=== PATIENT | female | born 1950 | race Caucasian/White ===

== ENCOUNTER 2022-08-25 18:31 | Emergency (ER) | payer MEDICARE, BC, SELFPAY ==
[2022-08-25] VITALS (21 sets, daily range): BP systolic 110–150; BP diastolic 69–101; PULSE 92–127; RESP 18; TEMP 36.4; O2SAT 94–98; BMI 21.6
--- NOTE | 2022-08-25 18:51 | ED.GENADULT ---
HPI - General Adult General Time Seen by Provider: 18:51 Date Seen: 08/25/22 Chief complaint: Arrhythmia/Palpitations Stated complaint: Afib Time Seen by Provider: 08/25/22 18:50 Source: patient and RN notes reviewed Mode of arrival: ambulatory Limitations: no limitations History of Present Illness HPI narrative: Patient is a 71-year-old female ambulatory in the ED of her own accord with concern of recurrent atrial fibrillation. She states for the past year she has been having intermittent symptoms of atrial fibrillation. She is scheduled to do a phone consultation with Cardiology tomorrow to discuss further steps. She is not on any rate control medicines, not on any blood thinners. She notes that her episodes are becoming more problematic. She is having more difficulty in feeling winded, decreased tolerance for activities. She has never been diagnosed with congestive heart failure. She does note her dad of congestive heart failure and she has 2 brothers with pacemakers. She does not have diabetes, states she has never been diagnosed with hypertension. She is not having any chest pain right now. She states the last 2 weeks she has maybe felt a little tickle in her chest. About 30 minutes prior to presentation to the ER she felt her heart rate going fast again, took her pulse and was elevated. She states that she had an echo just recently that showed her heart function was reportedly normal. She states that in part of this workup there was a point where she had a 6 second pause after 1 of her beats. Note later patient told nursing staff that a monitor or something that she had done showed that she had only been out of atrial fibrillation 2 days since June. We are going to try to review her records. If she indeed is in chronic atrial fibrillation, do think she should probably be on anticoagulation possibly pending a cardioversion down the road and certainly be on rate control from what I am seeing. Related Data Home Medications Medication Instructions Recorded Confirmed No Known Home Medications 08/25/22 08/25/22 Allergies Allergy/AdvReac Type Severity Reaction Status Date / Time amoxicillin Allergy Verified 08/25/22 18:40 ciprofloxacin [From Cipro] Allergy Verified 08/25/22 18:40 Review of Systems Status of ROS: Reports: 10 or more systems reviewed and unremarkable except as noted in History and below [facility] PFS Social History Smoking Status: Unknown if ever smoked Do you use any of these nicotine containing products: None How often do you have a drink containing alcohol: never AUDIT-C Alcohol total score: 0 Non-prescribed substance use: denies use Exam Const: Vital Signs, click to edit/add: Vital Signs - 24 hr 08/25/22 18:37 08/25/22 19:00 08/25/22 20:07 Temperature 97.5 F L Pulse Rate 104 H Pulse Rate [Right Pulse Oximeter] 117 H Respiratory Rate 18 Blood Pressure Blood Pressure [Ri ght Upper Arm] 150/98 H Pulse Oximetry 98 98 94 Oxygen Delivery Me thod Room Air 08/25/22 20:15 08/25/22 20:17 08/25/22 19:15 Temperature Pulse Rate 105 H 122 H Pulse Rate [Right Pulse Oximeter] 120 H Respiratory Rate 18 Blood Pressure 124/94 H Blood Pressure [Ri ght Upper Arm] 110/83 Pulse Oximetry 96 95 97 Oxygen Delivery Me thod Room Air 08/25/22 19:30 08/25/22 19:45 Temperature 97.5 F L Pulse Rate Pulse Rate [Right Pulse Oximeter] 110 H 115 H Respiratory Rate 18 18 Blood Pressure Blood Pressure [Ri ght Upper Arm] 117/99 H 125/69 Pulse Oximetry 98 95 Oxygen Delivery Me thod Room Air Room Air Documenting provider has reviewed patient's vital signs: yes Common normals: no apparent distress, average body habitus, oriented x3, no limitations, healthy appearing, alert and well nourished General appearance: cooperative, comfortable, well kempt and well developed HENMT: Common normals: normocephalic, head/scalp atraumatic and hearing grossly normal bilaterally Head and scalp: normocephalic and atraumatic Eye: Common normals: PERRL, EOMs intact bilaterally, conjunctivae normal and no scleral icterus Conjunctiva: conjunctiva(e) normal Pupil: PERRL Neck & C-Spine: Common normals: full ROM, no lymphadenopathy, supple, no meningeal signs, no JVD and thyroid normal Thyroid: thyroid normal Chest: Common normals: inspection of chest normal and palpation of chest normal Resp: Common normals: normal respiratory effort, no retractions, no use of accessory muscles and clear to auscultation bilaterally Effort & inspection: able to speak in complete sentences Auscultation: clear to auscultation bilaterally Cardio: Common normals: no JVD, no clicks and no murmurs Rhythm: abnormal rhythm irregularly irregular GI: Common normals: Normal to inspection, nondistended, normoactive bowel sounds present, soft to palpation, non-tender, no hepatosplenomegaly and no masses Palpation: soft and no hepatosplenomegaly Extremity: Common normals: no pedal edema Neuro: Common normals: oriented x3 Sensorium/orientation: alert Meningeal signs: no meningeal signs Psych: Appearance: well kempt Course Course Hospital Course: Patient has recurrent arrhythmia, probable atrial fibrillation based on her history. Will obtain EKG, have her on cardiac monitoring and pulse oximetry. Clinically, she does not seem to have any congestive heart failure but will obtain portable chest x-ray. We will get appropriate labs. I will not do a screening thyroid as she has had symptoms for a year and would presume that this is been done. Will calculate her chads Vasc score. Have reviewed with her the 2 fold complications with atrial fibrillation, rate control and anticoagulation for stroke risk. Will initiate 2.5 mg IV metoprolol and see how she tolerates this. Attempt to review records, possibly talk to Cardiology if need be. Reevaluation(s) Reevaluation #1: Was in with nursing staff while patient was receiving her IV metoprolol. It did slow her rate down, I was observing the monitor. There certainly aspirate X that show atrial fibrillation but at times there were definite P-waves in a saw tooth pattern with variable block. Thus, I can see on the monitor that she does have some arrhythmia burden with atrial flutter. I am going to talk to Cardiology on-call through [facility]. Did question the patient about her arrhythmia burden. She states since July 05 that she has been keeping a log. She has been in and out of atrial fibrillation. She did have a ZIO patch monitor for 2 weeks in that time frame as well. Time: 19:28 Reevaluation #2: Spoke with embedded software programmer Dr. Ma from [facility]. Reviewed the concern for the pauses seen on the ZIO patch, her tachycardia with probable atrial fibrillation and flutter. She recommended no further rate suppression at this time for concern of ensuing bradycardic rhythms. They do have the capacity for transfer for cardiac monitored bed at [facility] currently. She recommends that patient be evaluated by electrophysiology for pacemaker placement. I will subsequently talk to their hospitalist to give report. I a have reviewed with the patient recommendation for transfer tonight. The embedded software programmer did not recommend using any blood thinners at this time. Time: 20:11 Reevaluation #3: Gave report to Dr. Anguiano the hospitalist. He will accept patient. 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 Time: 20:31 Vital Signs Vital signs: Initial Vital Signs Temperature 97.5 F L 08/25/22 18:37 Temperature Source Temporal Artery Scan 08/25/22 18:37 Pulse Rate 117 H 08/25/22 18:37 Respiratory Rate 18 08/25/22 18:37 Blood Pressure 150/98 H 08/25/22 18:37 Blood Pressure Mean 115 08/25/22 18:37 Blood Pressure Position Sitting 08/25/22 18:37 Pulse Oximetry 98 08/25/22 18:37 Oxygen Delivery Method 08/25/22 18:37 Vital Signs Temperature 97.5 F L 08/25/22 18:37 Pulse Rate 117 H 08/25/22 18:37 Respiratory Rate 18 08/25/22 18:37 Blood Pressure 150/98 H 08/25/22 18:37 Pulse Oximetry 98 08/25/22 18:37 Oxygen Delivery Method 08/25/22 18:37 Temperature 97.5 F L 08/25/22 19:45 Pulse Rate 122 H 08/25/22 20:17 Respiratory Rate 18 08/25/22 19:45 Blood Pressure 124/94 H 08/25/22 20:17 Pulse Oximetry 95 08/25/22 20:17 Oxygen Delivery Method 08/25/22 19:45 Medical Decision Making Medical Records Medical records reviewed: Yes I reviewed the patient's medical records Medical records narrative: ZIO patch preliminary findings show pauses, 4 episodes longus being 6.5 seconds. Atrial fibrillation occurred 24% of the time. The ZIO patch initial recording and said that there was no ventricular tachycardia found but in an episode of the atrial fibrillation that is listed on the sheet it does look to me that there is a wide complex tachycardia 7 be run followed by another 3 beat run. Echo from 08/21/2022 showed normal left ventricular size, borderline wall thickness, normal global systolic function, calculated EF of 66%. Normal estimated pulmonary pressures by tricuspid regurgitation velocity and right atrial pressure. Lab Data Lab results reviewed: Yes I reviewed the patient's lab results Labs: Lab Results 08/25/22 08/25/22 08/25/22 Range/Units 19:03 19:15 19:15 WBC 5.65 (4.50-11.00) K/uL RBC 4.85 (4.00-5.20) m/uL Hgb 14.9 (12.0-16.0) gm/dL Hct 43.1 (33.0-51.0) % MCV 89 (80-100) fL MCH 31 (26-34) pg MCHC 35 (32-36) gm/dL RDW Coeff of Deion 12.4 (11.5-15.5) % Plt Count 265 (140-440) K/uL Neut % (Auto) 56.9 (42.0-72.0) % Lymph % (Auto) 32.6 (20-44) % Mora % (Auto) 8.1 (0.0-11.0) % Eos % (Auto) 1.9 (0.0-7.0) % Baso % (Auto) 0.5 (0.0-3.0) % Neut # (Auto) 3.21 (1.7-7.0) K/uL Lymph # (Auto) 1.84 (0.90-2.90) K/uL Mora # (Auto) 0.50 (0.00-0.90) K/UL Eos # (Auto) 0.11 (0.00-0.50) K/uL Baso # (Auto) 0.03 (0.00-0.30) K/uL Sodium 139 (135-149) mmol/L Potassium 3.8 (3.6-5.1) mmol/L Chloride 105 (96-114) mmol/L Carbon Dioxide 27 (20-32) mmol/L BUN 16 (7-30) mg/dL Creatinine 0.7 (0.5-1.5) mg/dL Estimated Creat Clear 46.43 Estimated GFR 92 ml/min Glucose 116 H (60-115) mg/dL Calcium 9.5 (8.4-10.6) mg/dL Magnesium 2.2 (1.5-2.6) mg/dL Total Bilirubin 0.9 (0.1-1.5) mg/dL AST 25 (12-35) U/L ALT 15 (4-35) U/L Alkaline Phosphatase 68 (40-150) U/L C-Reactive Protein < 0.5 L (0.5-1.0) mg/dL NT-Pro-B Natriuret Pep 122 pg/mL Total Protein 7.4 (6.0-8.3) g/dL Albumin 4.5 (3.3-5.0) g/dL POC Troponin I 0.00 L (0.01-0.04) ng/ml Imaging Data Chest x-ray: Attestation: I have reviewed the pertinent imaging results. My impression: I see cardiomegaly without any overt CHF, no consolidation. Await Radiology over-read. Radiologist's impression: Patient: TROY PHELAN Facility:?[facility] Patient ID:?[id number] Site Patient ID:?[id number]. Site :?[id number] Study:?XRay Chest ap portable-08/25/2022 7:30:26 PM Ordering Physician:?Shannon Tai Final Report: INDICATION: Atrial fibrillation with RVR. COMPARISON: None. TECHNIQUE: Chest one-view. FINDINGS: Cardiac silhouette is enlarged. No focal lung consolidation, pleural effusion or pneumothorax. Bones are unremarkable for age. IMPRESSION: Cardiomegaly. Otherwise no acute cardiopulmonary abnormality. Dictated by Tobias Carvalho MD @ 08/25/2022 7:56:03 PM (Electronic Signature) ECG Data Attestation: I personally reviewed and interpreted this ECG as follows: (Atrial flutter versus atrial fibrillation with variable block, 115 beats per minute. Nonspecific ST segment changes.) Prior ECG tracings: not available for review Critical Care Time Critical Care Time Critical Care Time: Yes Attestation: The patient required my highest level preparedness to intervene emergently and I personally spent this critical care time directly and personally managing the patient. This critical care time included: Obtaining a history; Examining the patient; Pulse oximetry; Ordering and reviewing of studies; Arranging urgent treatment with development of a management plan; Evaluation of patients response to treatment; Frequent reassessment discussions with other providers. This critical care time was performed to assess and manage the high probability of imminent life-threatening deterioration that could result in multiorgan failure. It was exclusive of separate billable procedures and treating other patients and teaching time. Total Critical Care Time in Minutes: 60 (Initial 60 minutes in evaluation, review of records and subsequent initial management.) Discharge Plan Discharge Clinical Impression: Sinus pause, Atrial flutter, Atrial fibrillation with rapid ventricular response Patient Disposition: Xfer [facility] Discharge Location: [facility] Prescriptions: No Action No Known Home Medications Stand Alone Forms: [facility] Info Instructions
--- NOTE | 2022-08-25 19:00 | CRLHL7_ITS ---
For Patients: As a result of the Century Cures Act, medical imaging exams and procedure reports are released immediately into your electronic medical record. You may view this report before your referring provider. If you have questions, please contact your health care provider. INDICATION: Atrial fibrillation with RVR. COMPARISON: None. TECHNIQUE: Chest one-view. FINDINGS: Cardiac silhouette is enlarged. No focal lung consolidation, pleural effusion or pneumothorax. Bones are unremarkable for age. IMPRESSION: Cardiomegaly. Otherwise no acute cardiopulmonary abnormality. Dictated by Tobias Carvalho MD @ 08/25/2022 7:56:03 PM (Electronically Signed)
[2022-08-25 19:28] LABS: Basophils Absolute Auto 0.03 K/uL (0.00-0.30); Basophils Percent Auto 0.5 % (0.0-3.0); Eosinophils Absolute Auto 0.11 K/uL (0.00-0.50); Eosinophils Percent Auto 1.9 % (0.0-7.0); Hematocrit 43.1 % (33.0-51.0); Hemoglobin* 14.9 gm/dL (12.0-16.0); Lymphocytes Absolute Auto 1.84 K/uL (0.90-2.90); Lymphocytes Percent Auto 32.6 % (20-44); Mean Corpuscular HGB Conc 35 gm/dL (32-36); Mean Corpuscular Hemoglobin 31 pg (26-34); Mean Corpuscular Volume 89 fL (80-100); Monocytes Percent Auto 8.1 % (0.0-11.0); Neutrophils Absolute Auto 3.21 K/uL (1.7-7.0); Neutrophils Percent Auto 56.9 % (42.0-72.0); Platelet Count* 265 K/uL (140-440); RDW Coefficient of Variation % 12.4 % (11.5-15.5); Red Blood Count 4.85 m/uL (4.00-5.20); White Blood Count* 5.65 K/uL (4.50-11.00)
[2022-08-25] MEDS: METOPROLOL TARTRATE 1 MG/ML inj 2.5 MG IVP (19:28)
[2022-08-25 19:35] LABS: Slide Review Reflex No
[2022-08-25 19:50] LABS: Albumin* 4.5 g/dL (3.3-5.0); Chloride* 105 mmol/L (96-114); Potassium* 3.8 mmol/L (3.6-5.1); Sodium* 139 mmol/L (135-149)
[2022-08-25 19:52] LABS: Bilirubin Total* 0.9 mg/dL (0.1-1.5); Creatinine* 0.7 mg/dL (0.5-1.5); Est. Creatinine Clearance* 46.43; Estimated Glomerular Filt Rate 92 ml/min
[2022-08-25 19:53] LABS: Alanine Aminotransferase* 15 U/L (4-35); Alkaline Phosphatase* 68 U/L (40-150); Aspartate Amino Transferase* 25 U/L (12-35); Blood Urea Nitrogen* 16 mg/dL (7-30); Carbon Dioxide* 27 mmol/L (20-32); Glucose* 116 mg/dL (60-115); Total Protein* 7.4 g/dL (6.0-8.3)
[2022-08-25 19:54] LABS: Calcium* 9.5 mg/dL (8.4-10.6); Magnesium* 2.2 mg/dL (1.5-2.6)
[2022-08-25 19:58] LABS: C Reactive Protein* < 0.5 mg/dL (0.5-1.0)
[2022-08-25 20:05] LABS: NT Pro B Type NatriureticPept* 122 pg/mL
== END 2022-08-25 22:38 | disposition short-term general hospital (02) ==
PROVIDERS: Emergency Provider Family Medicine; PCP Physician Assistant Medical
DX: I48.20 Chronic atrial fibrillation, unspecified (principal); I48.92 Unspecified atrial flutter
CPT/HCPCS: 36415; 71045; 80053; 83735; 83880; 84484; 85025; 86140; 93005; 99284; 99285; 99291

== ENCOUNTER 2022-08-25 22:23 | Outpatient (CLI) | payer MEDICARE, BC, SELFPAY | END 2022-08-25 22:24 | disposition home or self-care (01) | LOC: AMB 08-28 09:44 | PROVIDERS: PCP Physician Assistant Medical; Visit Provider Family Medicine | DX: I49.9 Cardiac arrhythmia, unspecified (principal) | CPT/HCPCS: A0425; A0426 ==

== ENCOUNTER 2024-02-09 13:00 | Outpatient (RCR) | payer MEDICARE, BC, SELFPAY | END 2024-02-11 15:49 | disposition home or self-care (01) | PROVIDERS: PCP Physician Assistant Medical; Visit Provider Family Medicine | DX: M25.512 Pain in left shoulder (principal); M54.2 Cervicalgia; Z51.89 Encounter for other specified aftercare | CPT/HCPCS: 97110; 97162 ==